=== PATIENT | male | born 1990 | race Caucasian/White ===

== ENCOUNTER 2018-12-26 21:33 | Emergency (ER) | payer OTHER ==
[~2018-12-26] VITALS: Ht 175.3 cm; Wt 70.0 kg
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
--- NOTE | 2018-12-26 21:47 | NUR ---
Restraint order signed by ERP and paperwork initiated via this rn.
--- NOTE | 2018-12-26 22:04 | NUR ---
at bedside for assessment. Pt still refusing to cooperative w/ staff.
--- NOTE | 2018-12-26 22:54 | NUR ---
Pt completely awake at this time. Given verbal contract to not attempt to harm staff. Taken out of restraints entirely per request and md marin. at bedside for assessment. Pt remains free of si/hi.
--- NOTE | 2018-12-26 23:01 | NUR ---
Pt refusing to talk to md. Pt informed of assessment process and still refusing at this time. Md aware.
--- NOTE | 2018-12-26 23:22 | NUR ---
Pt sleeping on Exablox. Remains a+ox4. Still refusing to talk to .
--- NOTE | 2018-12-27 00:20 | NUR ---
LUNCH RN: PT RESTING IN ROOM WITH EYES CLOSED. REGULAR RESP. VS STABLE. NO ACUTE DISTRESS NOTED. WILL CONTINUE TO MONITOR WHILE PRIMARY RN IS ON BREAK.
[2018-12-27 00:59] VITALS: BP 128/80
--- NOTE | 2018-12-27 01:00 | NUR ---
Pt sleeping comfortably on gurney. Easily rousable. Still refusing to talk to md. Md aware. All monitoring still intact. Pt pleasant w/ this rn.
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
--- NOTE | 2018-12-27 01:37 | NUR ---
Pt awake and allowing md to assess. Md at bedside to assess pt. Pt tbdc. Pt gave street address and will be given taxi voucher upon d/c. All belongings give back to pt at this time.
== END 2018-12-27 02:20 | disposition home or self-care (01) ==
LOC: ED 23:31
DX: F60.6 Avoidant personality disorder (principal)
CPT/HCPCS: 99284